=== PATIENT | female | born 1955 | race Caucasian/White ===

== ENCOUNTER 2021-02-27 16:08 | Inpatient (IN) | payer MEDICAID ==
[~2021-02-27] VITALS: Ht 160 cm; Wt 131.8 kg
[~2021-02-27 16:08] MED LIST: BUPR300T53; CEPH250C92 PO; DOXY-8 PO; IBUP-1984 PO; LEVA15HF4 IH; METF500T PO; NYST15CR30 TP; PRED10TA PO; RAMI5CAP65 PO; ZOC40T PO
[2021-02-27] MEDS ORDERED: aspirin 81mg tab.chew PO ONE ×2 (16:35→20:25)
[2021-02-27 17:40] LABS: BASOPHILS # (AUTO) 0.1 X10'3 (0-0.2); EOSINOPHILS # (AUTO) 0.2 X10'3 (0-0.9); EOSINOPHILS % (AUTO) 1.7 % (0-6); HEMATOCRIT 34.2 % (35.0-45.0); HEMOGLOBIN 10.5 g/dl (12.0-16.0); LYMPHOCYTES # (AUTO) 2.6 X10'3 (1.1-4.8); MEAN CORPUSCULAR HEMOGLOBIN 22.2 PG (27.0-31.0); MEAN CORPUSCULAR HGB CONC 30.8 g/dL (33.0-36.5); MEAN PLATELET VOLUME 7.7 FL (7.4-10.4); MONOCYTES # (AUTO) 0.6 X10'3 (0-0.9); MONOCYTES % (AUTO) 6.5 % (2-12); NEUTROPHILS # (AUTO) 6.1 X10'3 (1.8-7.7); NEUTROPHILS % (AUTO) 63.8 % (42-75); PLATELET COUNT 337 X10'3 (140-440); RED BLOOD COUNT 4.75 X10'6 (4.20-5.60); RED CELL DISTRIBUTION WIDTH 16.2 % (11.5-14.5); WHITE BLOOD COUNT 9.5 X10'3 (4.5-11.0)
[2021-02-27 17:51] LABS: D-DIMER 0.58 MG/L FEU (0-0.50)
[2021-02-27 17:54] LABS: ALANINE AMINOTRANSFERASE 35 U/L (12-78); ALBUMIN 3.6 G/DL (3.4-5.0); ALBUMIN/GLOBULIN RATIO 0.9 (1.1-1.5); ALKALINE PHOSPHATASE 71 IU/L (46-116); ANION GAP 8 (8-16); ASPARTATE AMINO TRANSFERASE 25 U/L (10-37); BILIRUBIN,TOTAL 0.3 MG/DL (0.1-1.0); BLOOD UREA NITROGEN 21 MG/DL (7-18); CALCIUM 9.1 MG/DL (8.5-10.1); CHLORIDE 101 MMOL/L (99-107); CREATININE 1.05 MG/DL (0.40-0.90); GLUCOSE 268 MG/DL (70-104); SODIUM 139 MMOL/L (135-145); TOTAL CARBON DIOXIDE 30.2 MMOL/L (24-32); TOTAL PROTEIN 7.8 G/DL (6.4-8.2); eGFR 53 ML/MIN
[2021-02-27] MEDS ORDERED: iohexol 350MG/ML 100ml bottle IV ONE ×2 (20:21→20:22)
[2021-02-27] MEDS ORDERED: heparin 10,000 units/1 ML INJ IV ONE ×2 (20:25→20:30)
[2021-02-27 20:46] LABS: PARTIAL THROMBOPLASTIN TIME 25 SECONDS (22-32)
[2021-02-27] MEDS ORDERED: temazepam 15mg capsule PO PRN (21:00)
[2021-02-27] MEDS ORDERED: BUPR-72 PO (21:27)
[2021-02-27] MEDS ORDERED: LISI40TA13 PO (21:32)
[2021-02-27] MEDS ORDERED: ESCI20TA39 PO (21:34)
[2021-02-27] MEDS ORDERED: LORA10TA7 PO (21:34)
[2021-02-27] MEDS ORDERED: CALC-1276 PO (21:34)
[2021-02-27] MEDS ORDERED: ATOR40TA72 PO (21:37)
[2021-02-27] MEDS ORDERED: OMEP-50 PO (21:38)
[2021-02-27] MEDS ORDERED: TRAZ-251 PO (21:38)
[2021-02-27] MEDS ORDERED: MELO-100 PO (21:38)
[2021-02-27] MEDS ORDERED: HYDR25TA4 PO (21:39)
[2021-02-27] MEDS: heparin 25,000 UNIT/250ml bag 250 ML IV SCH (21:43)
[2021-02-27] MEDS ORDERED: BUDE10.26 IH (21:48)
[2021-02-27] MEDS ORDERED: GABA300C PO (23:06)
[2021-02-27] MEDS ORDERED: INSU100V43 SQ (23:06)
[2021-02-27] MEDS ORDERED: INSU100V9 SQ (23:06)
[2021-02-27] MEDS ORDERED: ALBU18HF2 IH (23:15)
[2021-02-27] MEDS ORDERED: mag hydrox/Alum hydrox/simeth 30ml oral suspension PO PRN (23:40)
[2021-02-27] MEDS ORDERED: diphenhydrAMINE 50 mg/ml inj IV PRN (23:40)
[2021-02-27] MEDS ORDERED: HYDROcodone/acetaminophen 5mg/325mg tablet PO PRN (23:40)
[2021-02-27] MEDS ORDERED: ondansetron 4mg rapidly disintigrating tab PO PRN (23:40)
[2021-02-27] MEDS ORDERED: acetaminophen 325mg tablet PO PRN ×2 (23:40)
[2021-02-27] MEDS ORDERED: diphenhydrAMINE 25mg capsule PO PRN (23:40)
[2021-02-27] MEDS ORDERED: morphine 2 MG/ML inj. syringe IV PRN ×2 (23:40)
[2021-02-27] MEDS ORDERED: acetaminophen 650mg rectal suppository RC PRN (23:40)
[2021-02-27] MEDS ORDERED: normal saline 1000ml 1,000 ML IV SCH (23:40)
[2021-02-27] MEDS ORDERED: bisacodyl 10mg suppository rectal RC PRN (23:40)
[2021-02-27] MEDS ORDERED: magnesium hydroxide 30ml (MOM) UD suspension PO PRN (23:40)
[2021-02-27] MEDS ORDERED: ondansetron/PF 4mg/2ml inj IV PRN (23:40)
[2021-02-27] MEDS ORDERED: dextrose ORAL solution 15 GM/59 ML bottle PO PRN ×2 (23:55)
[2021-02-27] MEDS ORDERED: glucagon, human recombinant 1mg kit SUBCUT PRN (23:55)
[2021-02-27] MEDS ORDERED: dextrose 50%-water 50ml dispensing syringe IV PRN ×2 (23:55)
[2021-02-27] MEDS ORDERED: MESSAGE TO PHARMACY PO ONE (23:55)
[2021-02-28] VITALS (13 sets, daily range): BP systolic 128–150; BP diastolic 54–79
[2021-02-28 01:04] LABS: URINE AMPHETAMINE SCREEN NEGATIVE (Neg); URINE BARBITUATE SCREEN NEGATIVE (Neg); URINE BENZODIAZEPINES SCREEN NEGATIVE (Neg); URINE CANNABINOID SCREEN NEGATIVE (Neg); URINE COCAINE SCREEN NEGATIVE (Neg); URINE METHADONE SCREEN NEGATIVE (Neg); URINE OPIATE SCREEN POSITIVE (Neg); URINE PHENCYCLIDINE SCREEN NEGATIVE (Neg)
[2021-02-28] MEDS ORDERED: albuterol 2.5 MG/3 ML nebule NEB PRN (01:05)
[2021-02-28 01:15] LABS: CLARITY,URINE CLEAR (Clear); COLOR,URINE YELLOW (Yellow); GLUCOSE, URINE NEGATIVE (Neg); KETONES,URINE NEGATIVE (Neg); LEUKOCYTE ESTERASE ,URINE NEGATIVE (Neg); NITRITES, URINE NEGATIVE (Neg); OCCULT BLOOD,URINE NEGATIVE (Neg); PROTEIN,URINE NEGATIVE (Neg); UA COLLECTION TYPE NON-SPECIFIED; UROBILINOGEN,URINE 0.2 E.U/dL (0.2-1.0)
[2021-02-28 01:23] LABS: HEMOGLOBIN A1C 10.2 % (4.5-6.2)
[2021-02-28 01:29] LABS: CREATINE KINASE 204 U/L (26-192); LIPASE 116 U/L (73-393); MAGNESIUM 1.7 MG/DL (1.5-2.4); PHOSPHORUS 4.1 MG/DL (2.3-4.5)
--- NOTE | 2021-02-28 02:00 | NUR ---
Patient transported from ED via stretcher. patient oriented to room and call light. no C/O pain at this time. lighting adjusted. IVF infusing per order. patient educated on use of bedside commode.
[2021-02-28] MEDS: albuterol 2.5 MG/3 ML nebule NEB SCH ×3 (03:22→20:42)
[2021-02-28] MEDS: heparin 10,000 units/1 ML INJ IV PRN ×2 (05:02→13:10)
[2021-02-28] MEDS: HYDROcodone/acetaminophen 10/325mg tab PO PRN ×2 (05:21→16:51)
--- NOTE | 2021-02-28 06:06 | NUR ---
call light placed within reach. c/o slight pain. medication administered per order. report given to AM nurse.
--- NOTE | 2021-02-28 06:18 | NUR ---
Patient in room PCU 3014. I have received report from FAHEEM Crabtree and had the opportunity to ask questions and assume patient care.
[2021-02-28 06:28] LABS: BASOPHILS # (AUTO) 0.1 X10'3 (0-0.2); BASOPHILS % (AUTO) 0.7 % (0-1); EOSINOPHILS # (AUTO) 0.2 X10'3 (0-0.9); HEMATOCRIT 32.5 % (35.0-45.0); HEMOGLOBIN 10.3 g/dl (12.0-16.0); LYMPHOCYTES # (AUTO) 3.7 X10'3 (1.1-4.8); LYMPHOCYTES % (AUTO) 37.1 % (21-51); MEAN CORPUSCULAR HEMOGLOBIN 22.5 PG (27.0-31.0); MEAN CORPUSCULAR HGB CONC 31.7 g/dL (33.0-36.5); MEAN PLATELET VOLUME 8.1 FL (7.4-10.4); MONOCYTES # (AUTO) 0.5 X10'3 (0-0.9); MONOCYTES % (AUTO) 5.3 % (2-12); NEUTROPHILS # (AUTO) 5.4 X10'3 (1.8-7.7); NEUTROPHILS % (AUTO) 54.9 % (42-75); PLATELET COUNT 337 X10'3 (140-440); RED BLOOD COUNT 4.58 X10'6 (4.20-5.60); RED CELL DISTRIBUTION WIDTH 16.8 % (11.5-14.5); WHITE BLOOD COUNT 9.9 X10'3 (4.5-11.0)
[2021-02-28 06:39] LABS: ALANINE AMINOTRANSFERASE 18 U/L (12-78); ALBUMIN 3.6 G/DL (3.4-5.0); ALBUMIN/GLOBULIN RATIO 0.9 (1.1-1.5); ALKALINE PHOSPHATASE 68 IU/L (46-116); ANION GAP 12 (8-16); ASPARTATE AMINO TRANSFERASE 28 U/L (10-37); BILIRUBIN,TOTAL 0.3 MG/DL (0.1-1.0); BLOOD UREA NITROGEN 19 MG/DL (7-18); BUN/CREATININE RATIO 22.4 (6.6-38.0); CALCIUM 9.2 MG/DL (8.5-10.1); CHLORIDE 100 MMOL/L (99-107); CREATININE 0.85 MG/DL (0.40-0.90); GLUCOSE 167 MG/DL (70-104); POTASSIUM 3.9 MMOL/L (3.5-5.1); SODIUM 139 MMOL/L (135-145); TOTAL PROTEIN 7.6 G/DL (6.4-8.2); eGFR 67 ML/MIN
[2021-02-28 06:43] LABS: CHOL/HDL RATIO 3.9 (0.00-4.99); CHOLESTEROL 185 MG/DL (0-200); HDL CHOLESTEROL 48 MG/DL (35-60); LDL CHOLESTEROL 103 MG/DL (50-100); TRIGLYCERIDES 237 MG/DL (20-135)
[2021-02-28] MEDS: MESSAGE TO NURSING PO SCH ×2 (06:53→20:39)
[2021-02-28] MEDS: docusate sod 100mg capsule PO SCH ×2 (08:00→20:00)
[2021-02-28] MEDS: gabapentin 300mg capsule PO SCH (08:00)
[2021-02-28] MEDS: budesonide 0.5mg/2ml UD nebule IH SCH ×2 (09:27→20:42)
[2021-02-28] MEDS: pantoprazole 40mg Tablet.DR PO SCH (09:35)
[2021-02-28] MEDS: furosemide 10 MG/1 ML 10ml inj IV SCH (09:37)
[2021-02-28] MEDS: lisinopril 20mg tablet PO SCH (09:38)
[2021-02-28] MEDS: buPROPion SR 150mg tablet PO SCH ×2 (09:39→21:04)
[2021-02-28] MEDS: atorvastatin 20mg tablet PO SCH (09:39)
[2021-02-28] MEDS: aspirin 81mg, enteric-coated 1 TAB TABLET.DR PO SCH (09:39)
[2021-02-28] MEDS: ESCITALOPRAM OXALATE 5 MG TABLET PO SCH (09:40)
[2021-02-28] MEDS: nitroGLYCERIN 0.1mg/hour patch TD SCH (09:43)
[2021-02-28] MEDS ORDERED: metoprolol tartrate 1mg/ml inj IV PRN ×2 (10:00→10:05)
[2021-02-28] MEDS ORDERED: regadenoson 0.4mg/5ml syringe IV PRN (10:00)
[2021-02-28] MEDS ORDERED: nitroGLYCERIN 0.4mg SUBLingual tab SL PRN ×2 (10:00→10:05)
[2021-02-28] MEDS ORDERED: aminophylline 250mg/10ml inj. IV PRN ×2 (10:00→10:05)
[2021-02-28] MEDS ORDERED: regadenoson 0.4mg/5ml syringe IV ONE (10:05)
--- NOTE | 2021-02-28 10:05 | NUR ---
Metformin not administered d/t contrast administration on 02/27/2021.
[2021-02-28] MEDS: insulin Lispro (HumaLOG) vial - multi-dose SQ SCH ×3 (10:38→20:58)
[2021-02-28] MEDS: normal saline 1000ml 1,000 ML IV SCH (12:00)
[2021-02-28] MEDS ORDERED: predniSONE 20 mg tablet PO ONE (14:10)
--- NOTE | 2021-02-28 14:23 | NUR ---
Noted pt with T2DM, poorly controlled with A1c 10.2%. Pt seen at bedside for written and verbal DM education. Pt states she sees a PA q 3 months for DM management and takes her medications per rx without difficulties. Pt states she does not check her BG levels as her glucometer broke some time ago though reports she has a new one on the way. Pt reports she limits her sugar intake by limiting sugary beverages such as juices. Pt provided with RD contact information and encouraged to reach out if needed. Pt endorses a good appetite and confirms seafood allergy as only food allergy (already in EMR). Pt reports her teeth are at home though denies any difficulty chewing/swallowing and need for texture modification. LBM 02/27. Pt reports currently in with diarrhea. Pt provided with verbal diarrhea nutrition therapy education and pt encouraged to d/w with RN if symptoms continue. Will continue to follow. Addendum: 02/28/21 at [address] Amended: Links added.
[2021-02-28] MEDS: heparin 25,000 UNIT/250ml bag 250 ML IV SCH (15:20)
[2021-02-28] MEDS: insulin glargine (Lantus) pen - multi-dose SQ SCH (21:02)
[2021-02-28] MEDS: traZODone 50mg tablet PO SCH (21:03)
[2021-03-01] VITALS (16 sets, daily range): BP systolic 124–175; BP diastolic 63–89
[2021-03-01] MEDS: normal saline 1000ml 1,000 ML IV SCH ×2 (01:20→03:30)
[2021-03-01] MEDS: albuterol 2.5 MG/3 ML nebule NEB SCH ×4 (02:11→19:52)
[2021-03-01] MEDS: HYDROcodone/acetaminophen 10/325mg tab PO PRN (02:59)
[2021-03-01 07:11] LABS: BASOPHILS # (AUTO) 0.1 X10'3 (0-0.2); BASOPHILS % (AUTO) 1.4 % (0-1); EOSINOPHILS % (AUTO) 0.1 % (0-6); HEMATOCRIT 31.6 % (35.0-45.0); LYMPHOCYTES # (AUTO) 2.3 X10'3 (1.1-4.8); MEAN CORPUSCULAR HEMOGLOBIN 22.3 PG (27.0-31.0); MEAN CORPUSCULAR HGB CONC 31.7 g/dL (33.0-36.5); MEAN CORPUSCULAR VOLUME 70.4 FL (78-98); MEAN PLATELET VOLUME 7.9 FL (7.4-10.4); MONOCYTES # (AUTO) 0.5 X10'3 (0-0.9); NEUTROPHILS # (AUTO) 7.6 X10'3 (1.8-7.7); NEUTROPHILS % (AUTO) 71.5 % (42-75); PLATELET COUNT 315 X10'3 (140-440); RED CELL DISTRIBUTION WIDTH 16.5 % (11.5-14.5); WHITE BLOOD COUNT 10.6 X10'3 (4.5-11.0)
[2021-03-01 07:27] LABS: ALANINE AMINOTRANSFERASE 31 U/L (12-78); ALBUMIN 3.3 G/DL (3.4-5.0); ALBUMIN/GLOBULIN RATIO 0.8 (1.1-1.5); ALKALINE PHOSPHATASE 68 IU/L (46-116); ANION GAP 11 (8-16); ASPARTATE AMINO TRANSFERASE 24 U/L (10-37); BILIRUBIN,TOTAL 0.3 MG/DL (0.1-1.0); BLOOD UREA NITROGEN 18 MG/DL (7-18); BUN/CREATININE RATIO 17.6 (6.6-38.0); CALCIUM 8.8 MG/DL (8.5-10.1); CHLORIDE 100 MMOL/L (99-107); CREATININE 1.02 MG/DL (0.40-0.90); GLUCOSE 278 MG/DL (70-104); POTASSIUM 4.1 MMOL/L (3.5-5.1); SODIUM 137 MMOL/L (135-145); TOTAL PROTEIN 7.6 G/DL (6.4-8.2); eGFR 55 ML/MIN
[2021-03-01] MEDS: pantoprazole 40mg Tablet.DR PO SCH (07:30)
[2021-03-01] MEDS: docusate sod 100mg capsule PO SCH ×2 (08:00→20:13)
[2021-03-01] MEDS ORDERED: predniSONE 20 mg tablet PO ONE (08:00)
[2021-03-01] MEDS: nitroGLYCERIN 0.1mg/hour patch TD SCH (08:00)
[2021-03-01] MEDS: budesonide 0.5mg/2ml UD nebule IH SCH ×2 (08:00→19:52)
[2021-03-01] MEDS: atorvastatin 20mg tablet PO SCH (09:37)
[2021-03-01] MEDS: buPROPion SR 150mg tablet PO SCH ×2 (09:39→20:14)
[2021-03-01] MEDS: ESCITALOPRAM OXALATE 5 MG TABLET PO SCH (09:39)
[2021-03-01] MEDS: aspirin 81mg, enteric-coated 1 TAB TABLET.DR PO SCH (09:39)
[2021-03-01] MEDS: lisinopril 20mg tablet PO SCH (09:39)
[2021-03-01] MEDS: furosemide 10 MG/1 ML 10ml inj IV SCH (09:41)
[2021-03-01] MEDS: insulin Lispro (HumaLOG) vial - multi-dose SQ SCH ×3 (10:02→20:24)
[2021-03-01] MEDS ORDERED: fentaNYL/PF 50MCG/1 ML 2ML syringe ONE (10:08)
[2021-03-01] MEDS ORDERED: iohexol 350 MG/ML 50ML vial IV ONE ×2 (10:08→10:53)
[2021-03-01] MEDS ORDERED: heparin 1,000unit/ml 10ml vial 10 ML ONE (10:08)
[2021-03-01] MEDS ORDERED: midazolam 1 mg/ML 2ml injection ONE (10:08)
[2021-03-01] MEDS ORDERED: LIDOcaine 1% (10mg/ml)w/preservative injection 20ml MDV ONE (10:08)
[2021-03-01] MEDS ORDERED: iohexol 350MG/ML 100ml bottle IV ONE (10:09)
[2021-03-01] MEDS: heparin 25,000 UNIT/250ml bag 250 ML IV SCH (10:17)
[2021-03-01] MEDS ORDERED: acetaminophen 325mg tablet PO PRN (11:40)
[2021-03-01] MEDS ORDERED: nitroGLYCERIN 0.4mg SUBLingual tab SL PRN (11:40)
[2021-03-01] MEDS ORDERED: HYDROcodone/acetaminophen 10/325mg tab PO PRN (11:40)
[2021-03-01] MEDS ORDERED: ondansetron/PF 4mg/2ml inj IV PRN (11:40)
[2021-03-01] MEDS ORDERED: OXAZEpam 15mg capsule PO PRN (11:40)
[2021-03-01] MEDS ORDERED: HYDROcodone/acetaminophen 5mg/325mg tablet PO PRN (11:40)
[2021-03-01] MEDS ORDERED: proCHLORperazine 10 MG/2 ml inj IV PRN (11:40)
[2021-03-01] MEDS: sodium chloride 0.45% 1,000 ML IV SCH (16:11)
--- NOTE | 2021-03-01 18:30 | NUR ---
Patient in room PCU 3014. I have received report from Esther MAYEN and had the opportunity to ask questions and assume patient care.
--- NOTE | 2021-03-01 18:33 | NUR ---
Problems reprioritized. Patient report given, questions answered & plan of care reviewed with Coretta MAYEN. Patient stable a transfer of care.
--- NOTE | 2021-03-01 18:36 | NUR ---
[place] documentation: I have reviewed and agree with all interventions, assessments performed and documented by Ana Rosa MAYEN.
--- NOTE | 2021-03-01 18:37 | NUR ---
[place] Medication Administration: For this medication-pass time frame, all medication were reviewed, dispensed, administered and documented per hospital policy by Ana Rosa MAYEN.
[2021-03-01] MEDS: carvedilol 6.25mg tablet PO SCH (20:14)
[2021-03-01] MEDS: gabapentin 300mg capsule PO SCH (22:13)
[2021-03-01] MEDS: traZODone 50mg tablet PO SCH (22:14)
[2021-03-01] MEDS: insulin glargine (Lantus) pen - multi-dose SQ SCH (22:18)
[2021-03-02 02:00] VITALS: BP 142/75
[2021-03-02] MEDS: albuterol 2.5 MG/3 ML nebule NEB SCH ×2 (02:06→07:45)
[2021-03-02] MEDS: sodium chloride 0.45% 1,000 ML IV SCH (02:57)
[2021-03-02 03:05] VITALS: BP 142/75
[2021-03-02 06:00] VITALS: BP 138/70
--- NOTE | 2021-03-02 06:23 | NUR ---
Problems reprioritized. Patient report given, questions answered & plan of care reviewed with Inés MAYEN.
[2021-03-02 07:20] LABS: BASOPHILS # (AUTO) 0.1 X10'3 (0-0.2); BASOPHILS % (AUTO) 0.5 % (0-1); EOSINOPHILS % (AUTO) 0.3 % (0-6); HEMATOCRIT 31.9 % (35.0-45.0); HEMOGLOBIN 10.1 g/dl (12.0-16.0); LYMPHOCYTES % (AUTO) 34.1 % (21-51); MEAN CORPUSCULAR HEMOGLOBIN 22.3 PG (27.0-31.0); MEAN CORPUSCULAR HGB CONC 31.6 g/dL (33.0-36.5); MEAN CORPUSCULAR VOLUME 70.3 FL (78-98); MEAN PLATELET VOLUME 7.8 FL (7.4-10.4); MONOCYTES # (AUTO) 0.7 X10'3 (0-0.9); MONOCYTES % (AUTO) 4.8 % (2-12); NEUTROPHILS # (AUTO) 8.8 X10'3 (1.8-7.7); NEUTROPHILS % (AUTO) 60.3 % (42-75); PLATELET COUNT 347 X10'3 (140-440); RED BLOOD COUNT 4.54 X10'6 (4.20-5.60); RED CELL DISTRIBUTION WIDTH 16.4 % (11.5-14.5); WHITE BLOOD COUNT 14.5 X10'3 (4.5-11.0)
[2021-03-02 07:24] LABS: ALANINE AMINOTRANSFERASE 31 U/L (12-78); ALBUMIN 3.5 G/DL (3.4-5.0); ALBUMIN/GLOBULIN RATIO 0.9 (1.1-1.5); ALKALINE PHOSPHATASE 65 IU/L (46-116); ANION GAP 9 (8-16); ASPARTATE AMINO TRANSFERASE 30 U/L (10-37); BILIRUBIN,TOTAL 0.4 MG/DL (0.1-1.0); BLOOD UREA NITROGEN 20 MG/DL (7-18); BUN/CREATININE RATIO 20.8 (6.6-38.0); CALCIUM 9.3 MG/DL (8.5-10.1); CHLORIDE 102 MMOL/L (99-107); CREATININE 0.96 MG/DL (0.40-0.90); GLUCOSE 109 MG/DL (70-104); POTASSIUM 3.5 MMOL/L (3.5-5.1); SODIUM 139 MMOL/L (135-145); TOTAL CARBON DIOXIDE 28.3 MMOL/L (24-32); TOTAL PROTEIN 7.5 G/DL (6.4-8.2); eGFR 59 ML/MIN
[2021-03-02] MEDS: budesonide 0.5mg/2ml UD nebule IH SCH (07:45)
[2021-03-02] MEDS ORDERED: ASPI-1071 PO (08:12)
[2021-03-02] MEDS ORDERED: CARV6.253 PO (08:12)
[2021-03-02] MEDS: ESCITALOPRAM OXALATE 5 MG TABLET PO SCH (08:55)
[2021-03-02] MEDS: pantoprazole 40mg Tablet.DR PO SCH (08:55)
[2021-03-02] MEDS: carvedilol 6.25mg tablet PO SCH (08:55)
[2021-03-02] MEDS: atorvastatin 20mg tablet PO SCH (08:55)
[2021-03-02] MEDS: nitroGLYCERIN 0.1mg/hour patch TD SCH (08:56)
[2021-03-02] MEDS: lisinopril 20mg tablet PO SCH (08:56)
[2021-03-02] MEDS: buPROPion SR 150mg tablet PO SCH (08:56)
[2021-03-02] MEDS: gabapentin 300mg capsule PO SCH (08:56)
[2021-03-02] MEDS: aspirin 81mg, enteric-coated 1 TAB TABLET.DR PO SCH (08:56)
[2021-03-02] MEDS: furosemide 10 MG/1 ML 10ml inj IV SCH (08:58)
[2021-03-02 11:00] VITALS: BP 125/60
[2021-03-02] MEDS: insulin Lispro (HumaLOG) vial - multi-dose SQ SCH (13:19)
[2021-03-02] MEDS ORDERED: gabapentin 300mg capsule PO SCH (20:00)
== END 2021-03-02 13:00 | disposition home or self-care (01) | DRG 192 ==
LOC: ER 16:09 → ED HOLD 23:49 → PCU 3S 02-28 02:20
PROVIDERS: ADMIT Family Medicine; ATTEND Internal Medicine
PROC: B32T1ZZ Computerized Tomography (CT Scan) of Left Pulmonary Artery using Low Osmolar Contrast (ICD-10-PCS; 2021-02-27)
PROC: B3201ZZ Computerized Tomography (CT Scan) of Thoracic Aorta using Low Osmolar Contrast (ICD-10-PCS; 2021-02-27)
PROC: B32S1ZZ Computerized Tomography (CT Scan) of Right Pulmonary Artery using Low Osmolar Contrast (ICD-10-PCS; 2021-02-27)
PROC: 4A02XM4 Measurement of Cardiac Total Activity, External Approach (ICD-10-PCS; principal; 2021-02-28)
PROC: 3E073KZ Introduction of Other Diagnostic Substance into Coronary Artery, Percutaneous Approach (ICD-10-PCS; 2021-02-28)
PROC: 4A023N7 Measurement of Cardiac Sampling and Pressure, Left Heart, Percutaneous Approach (ICD-10-PCS; 2021-03-01)
PROC: B2111ZZ Fluoroscopy of Multiple Coronary Arteries using Low Osmolar Contrast (ICD-10-PCS; 2021-03-01)
PROC: B2151ZZ Fluoroscopy of Left Heart using Low Osmolar Contrast (ICD-10-PCS; 2021-03-01)
PROC: B2181ZZ Fluoroscopy of Left Internal Mammary Bypass Graft using Low Osmolar Contrast (ICD-10-PCS; 2021-03-01)
PROC: B2171ZZ Fluoroscopy of Right Internal Mammary Bypass Graft using Low Osmolar Contrast (ICD-10-PCS; 2021-03-01)
PROC: B41F1ZZ Fluoroscopy of Right Lower Extremity Arteries using Low Osmolar Contrast (ICD-10-PCS; 2021-03-01)
DX: I11.0 Hypertensive heart disease with heart failure (principal); I21.A1 Myocardial infarction type 2; I42.9 Cardiomyopathy, unspecified; N17.9 Acute kidney failure, unspecified; R16.0 Hepatomegaly, not elsewhere classified; Z68.43 Body mass index [BMI] 50.0-59.9, adult; E11.65 Type 2 diabetes mellitus with hyperglycemia; D50.9 Iron deficiency anemia, unspecified; D35.01 Benign neoplasm of right adrenal gland; E66.01 Morbid (severe) obesity due to excess calories; I50.43 Acute on chronic combined systolic (congestive) and diastolic (congestive) heart failure; E78.00 Pure hypercholesterolemia, unspecified; F17.210 Nicotine dependence, cigarettes, uncomplicated; E78.5 Hyperlipidemia, unspecified; G89.29 Other chronic pain; M54.50 Low back pain, unspecified; I44.7 Left bundle-branch block, unspecified; I25.110 Atherosclerotic heart disease of native coronary artery with unstable angina pectoris; F12.10 Cannabis abuse, uncomplicated; Z20.822 Contact with and (suspected) exposure to COVID-19; F32.A Depression, unspecified; J44.9 Chronic obstructive pulmonary disease, unspecified; K57.30 Diverticulosis of large intestine without perforation or abscess without bleeding; Z96.651 Presence of right artificial knee joint; Z90.710 Acquired absence of both cervix and uterus; Z90.49 Acquired absence of other specified parts of digestive tract; Z87.440 Personal history of urinary (tract) infections; Z82.3 Family history of stroke; Z82.49 Family history of ischemic heart disease and other diseases of the circulatory system; Z91.013 Allergy to seafood; Z79.899 Other long term (current) drug therapy
CPT/HCPCS: 36415; 71045; 71275; 78452; 80053; 80061; 80305; 81003; 82550; 82948; 83036; 83690; 83735; 83880; 84100; 84443; 84484; 85025; 85347; 85379; 85610; 85730; 87081; 87635; 93005; 93017; 93306; 93459; 94640; 94760; 96374; 99152; 99153; 99285; A4620; A6258; A9500; C1760; C1769; G0378; J1644; J1815; J1940; J2001; J2250; J3010; J7030; J7512; J7626; Q9967

== ENCOUNTER 2021-12-04 18:45 | Emergency (ER) | payer BC, MEDICAID ==
[~2021-12-04] VITALS: Ht 165.1 cm; Wt 113.6 kg
[~2021-12-04 18:45] MED LIST changes: +ALBU18HF2 IH; +ATOR40TA72 PO; +BUDE10.26 IH; +BUPR-72 PO; -BUPR300T53; +CALC-1276 PO; +CARV6.253 PO; -CEPH250C92 PO; -DOXY-8 PO; +ESCI20TA39 PO; +FERR324T2 PO; +FURO20TA4 PO; +GABA300C PO; +HYDR25TA4 PO; -IBUP-1984 PO; +INSU100V43 SQ; +INSU100V9 SQ; -LEVA15HF4 IH; +LORA10TA7 PO; +MELO-100 PO; -NYST15CR30 TP; +OMEP20CA16 PO; -PRED10TA PO; -RAMI5CAP65 PO; +SPIR25TA5 PO; +TRAZ-251 PO; -ZOC40T PO; +amiodarone 50MG/ML inj IV ONE; +dextrose 50%-water 50ml dispensing syringe IV ONE; +epiNEPHrine 0.1mg/ml 10ml syringe ONE
== END 2021-12-04 23:33 ==
LOC: ER 18:45
DX: I46.9 Cardiac arrest, cause unspecified (principal); I49.01 Ventricular fibrillation; I47.2 Ventricular tachycardia; E78.00 Pure hypercholesterolemia, unspecified; J44.9 Chronic obstructive pulmonary disease, unspecified; E11.9 Type 2 diabetes mellitus without complications; G89.29 Other chronic pain; M54.9 Dorsalgia, unspecified; F12.10 Cannabis abuse, uncomplicated; Z91.013 Allergy to seafood; Z79.899 Other long term (current) drug therapy
CPT/HCPCS: 36556; 92950; 99285; J0171; J0282; J3490